=== PATIENT | male | born 1965 | race Caucasian/White ===

== ENCOUNTER 2016-03-13 11:09 | Emergency (ER) | payer MEDICARE, SELFPAY ==
[~2016-03-13] VITALS: Ht 195.6 cm; Wt 112.7 kg
[~2016-03-13 11:09] MED LIST: PARO20TA24 PO; PARO40TA PO; PROP10 PO; QUET200T PO; QUET200XR PO; TRIH2TAB3 PO
[2016-03-13] MEDS ORDERED: ACET-66 PO (11:28)
[2016-03-13 11:36] LABS: GLUCOSE,POINT OF CARE 94 MG/DL (70-110)
[2016-03-13 12:23] LABS: ANION GAP 9 mmol/L (8-16); CALCIUM, TOTAL 9.3 mg/dL (8.8-10.5); CARBON DIOXIDE 28 mmol/L (22-29); CHLORIDE 103 mmol/L (98-107); CREATININE 0.94 mg/dL (0.60-1.30); GLOMERULAR FILTR. RATE CALC > 60 mL/min (>60); POTASSIUM 3.4 mmol/L (3.5-5.1); SODIUM SERUM 140 mmol/L (136-145); UREA NITROGEN, BLOOD 12 mg/dL (7-18)
[2016-03-13 12:24] LABS: SALICYLATE 0.6 mg/dL (2.8-20.0)
[2016-03-13 12:27] LABS: HEMATOCRIT 35.5 % (41-53); HEMOGLOBIN 11.1 g/dL (13.5-17.5); MEAN CORPUSCULAR HEMOGLOBIN 21.6 pg (26.0-34.0); MEAN CORPUSCULAR HGB CONC 31.4 G/dL (31.0-37.0); MEAN CORPUSCULAR VOLUME 69 fL (80-100); PLATELET COUNT (AUTO) 244 K/uL (150-450); RED BLOOD CELL COUNT(AUTO) 5.15 MIL/uL (4.50-5.90); RED CELL DISTRIBUTION WIDTH 21.7 % (11.5-14.5)
[2016-03-13] MEDS ORDERED: SODIUM CHLORIDE 0.9% 1,000 ML IV ONE (12:30)
[2016-03-13 12:33] LABS: WHITE BLOOD COUNT (AUTO) 49.4 K/uL (4.5-11.0)
[2016-03-13 12:38] LABS: B-TYPE NATRIURETIC PEPTIDE < 5 pg/mL (0-100)
[2016-03-13 12:46] LABS: LYMPHOCYTES % (MANUAL) 85 % (22-44); TOTAL CELLS COUNTED 100
[2016-03-13 12:47] LABS: ALANINE AMINOTRANSFERASE 32 U/L (12-78); ALBUMIN 3.6 g/dL (3.4-5.0); ASPARTATE AMINOTRANSFERASE 22 U/L (15-37); BILIRUBIN,TOTAL 0.4 mg/dL (0.1-1.0); CREATINE KINASE MB 2.2 ng/mL (0-5); CREATINE KINASE, TOTAL 119 U/L (39-308); TOTAL PROTEIN, SERUM 7.5 g/dL (6.4-8.2)
[2016-03-13 12:48] LABS: RBC MORPHOLOGY COMMENT ABNORMAL R
[2016-03-13 12:58] LABS: ACETAMINOPHEN < 2 mcg/mL (10-30)
[2016-03-13 18:41] LABS: ADD UA MICROSCOPIC NO; APPEARANCE,URINE CLEAR (CLEAR); GLUCOSE, URINE (UA) NEGATIVE (NEGATIVE); KETONES,URINE 15 mg/dL (NEGATIVE); LEUKOCYTE ESTERASE ,URINE NEGATIVE (NEGATIVE); OCCULT BLOOD,URINE NEGATIVE (NEGATIVE); PROTEIN,URINE NEGATIVE (NEGATIVE)
[2016-03-13 20:30] VITALS: BP 134/86
== END 2016-03-13 20:35 | disposition home or self-care (01) ==
LOC: EMS 11:13
DX: T43.591A Poisoning by other antipsychotics and neuroleptics, accidental (unintentional), initial encounter (principal); F25.9 Schizoaffective disorder, unspecified; C95.90 Leukemia, unspecified not having achieved remission; F31.9 Bipolar disorder, unspecified; R55 Syncope and collapse
CPT/HCPCS: 36415; 71010; 80053; 80307; 81003; 82550; 82553; 82962; 83605; 83690; 83880; 84484; 85025; 93041; 96360; 99285; G0480; G0481; J7030

== ENCOUNTER 2016-07-30 12:13 | Inpatient (IN) | payer MEDICARE, SELFPAY ==
[~2016-07-30] VITALS: Ht 195.6 cm; Wt 94.0 kg
[~2016-07-30 12:13] MED LIST changes: +ACET-66 PO; -PARO40TA PO; -QUET200T PO; -TRIH2TAB3 PO
[2016-07-30 12:57] VITALS: BP 106/81
[2016-07-30] MEDS ORDERED: ZOLPIDEM TARTRATE 10 MG TABLET PO PRN (13:00)
[2016-07-30] MEDS ORDERED: GuaiFENesin/D-METHORPHAN [SUGAR-FREE] 200-20MG/10 ML SYRUP UDCUP PO PRN (13:00)
[2016-07-30] MEDS ORDERED: ACETAMINOPHEN 325 MG TABLET PO PRN (13:00)
[2016-07-30] MEDS ORDERED: HydrOXYzine PAMOATE 50 MG CAPSULE PO PRN (13:00)
[2016-07-30] MEDS ORDERED: LOPERAMIDE HCL 2 MG CAPSULE PO PRN (13:00)
[2016-07-30] MEDS ORDERED: LORazepam 2 MG TABLET PO PRN (13:00)
[2016-07-30] MEDS ORDERED: TUBERCULIN, PURIFIED PROTEIN DERIVATIVE 5 TU/0.1 ML SYG ID ONE (13:00)
[2016-07-30] MEDS ORDERED: MAG HYDROX/AL HYDROX/SIMETH ES 30 ML SUSPENSION UDCUP PO PRN (13:00)
[2016-07-30] MEDS ORDERED: QUEtiapine FUMARATE 100 MG TABLET PO PRN (13:00)
[2016-07-30] MEDS ORDERED: PROMETHAZINE HCL 25 MG TABLET PO PRN (13:00)
[2016-07-30] MEDS ORDERED: MAGNESIUM HYDROXIDE SUSPENSION 30 ML UDCUP PO PRN (13:00)
[2016-07-30] MEDS ORDERED: QUET300T2 PO (13:24)
[2016-07-30] MEDS ORDERED: PARO20TA24 PO (13:24)
[2016-07-30] MEDS ORDERED: PROP10 PO (13:24)
[2016-07-30] MEDS ORDERED: QUET200T PO (13:31)
[2016-07-30] MEDS: PROPRANOLOL HCL 10 MG TABLET PO SCH ×3 (13:51→20:44)
[2016-07-30 14:29] VITALS: BP 120/70
[2016-07-30] MEDS ORDERED: PNEUMOCOCCAL VACCINE POLYVALENT 0.5 ML VIAL [PPSV23] IM ONE (15:15)
[2016-07-30 16:00] VITALS: BP 114/67
[2016-07-30] MEDS: THIAMINE HCL 100 MG TABLET PO SCH (17:28)
[2016-07-30] MEDS: TRIHEXYPHENIDYL HCL 2 MG TABLET PO SCH (17:28)
[2016-07-30] MEDS ORDERED: QUEtiapine FUMARATE 200 MG TABLET PO SCH (21:00)
[2016-07-31 06:27] VITALS: BP 106/66
[2016-07-31 08:31] LABS: HEMOGLOBIN 11.4 g/dL (13.5-17.5); MEAN CORPUSCULAR HEMOGLOBIN 22.3 pg (26.0-34.0); MEAN CORPUSCULAR HGB CONC 30.9 G/dL (31.0-37.0); MEAN CORPUSCULAR VOLUME 72 fL (80-100); PLATELET COUNT (AUTO) 190 K/uL (150-450); RED BLOOD CELL COUNT(AUTO) 5.13 MIL/uL (4.50-5.90); RED CELL DISTRIBUTION WIDTH 20.2 % (11.5-14.5)
[2016-07-31 08:47] VITALS: BP 101/56
[2016-07-31 08:52] LABS: WHITE BLOOD COUNT (AUTO) 44.6 K/uL (4.5-11.0)
[2016-07-31 08:55] LABS: ALANINE AMINOTRANSFERASE 14 U/L (12-78); ALBUMIN 3.7 g/dL (3.4-5.0); ANION GAP 10 mmol/L (8-16); ASPARTATE AMINOTRANSFERASE 16 U/L (15-37); BILIRUBIN,TOTAL 0.4 mg/dL (0.1-1.0); CALCIUM, TOTAL 8.8 mg/dL (8.8-10.5); CARBON DIOXIDE 27 mmol/L (22-29); CHLORIDE 105 mmol/L (98-107); CHOL/HDL RATIO 4.5 (4.2-7.3); CREATININE 0.93 mg/dL (0.60-1.30); GLOMERULAR FILTR. RATE CALC > 60 mL/min (>60); HEMOGLOBIN A1C 5.9 % (4.5-6.2); POTASSIUM 3.3 mmol/L (3.5-5.1); SODIUM SERUM 142 mmol/L (136-145); THYROID STIMULATING HORMONE 1.26 uIU/mL (0.36-3.74); TOTAL PROTEIN, SERUM 7.4 g/dL (6.4-8.2); UREA NITROGEN, BLOOD 23 mg/dL (7-18)
[2016-07-31] MEDS: TRIHEXYPHENIDYL HCL 2 MG TABLET PO SCH ×2 (08:55→16:26)
[2016-07-31] MEDS: PARoxetine HCL 20 MG TABLET PO SCH (08:55)
[2016-07-31] MEDS: NALTREXONE HCL 50 MG TABLET PO SCH (08:55)
[2016-07-31] MEDS: PROPRANOLOL HCL 10 MG TABLET PO SCH ×4 (08:55→20:33)
[2016-07-31] MEDS: FOLIC ACID 1 MG TABLET PO SCH (08:55)
[2016-07-31] MEDS: MULTIVITAMINS WITH MINERALS, THERAPEUTIC TABLET PO SCH (08:55)
[2016-07-31] MEDS: THIAMINE HCL 100 MG TABLET PO SCH ×2 (08:55→16:26)
[2016-07-31 09:43] LABS: LYMPHOCYTES % (MANUAL) 57 % (22-44); REACTIVE LYMPHOCYTES 31 % (0-0); TOTAL CELLS COUNTED 100
[2016-07-31 09:44] LABS: RBC MORPHOLOGY COMMENT ABNORMAL RBC MORPH
[2016-07-31] MEDS ORDERED: POTASSIUM CHLORIDE 20 MEQ ER TABLET PO ONE (09:45)
[2016-07-31 12:53] VITALS: BP 119/73
[2016-07-31 16:08] VITALS: BP 118/73
[2016-07-31] MEDS: QUEtiapine FUMARATE 200 MG TABLET PO SCH (20:33)
[2016-08-01 00:59] VITALS: BP 107/68
[2016-08-01] MEDS: TRIHEXYPHENIDYL HCL 2 MG TABLET PO SCH ×2 (09:08→16:13)
[2016-08-01] MEDS: MULTIVITAMINS WITH MINERALS, THERAPEUTIC TABLET PO SCH (09:08)
[2016-08-01] MEDS: PROPRANOLOL HCL 10 MG TABLET PO SCH ×4 (09:09→20:24)
[2016-08-01] MEDS: FOLIC ACID 1 MG TABLET PO SCH (09:09)
[2016-08-01] MEDS: PARoxetine HCL 20 MG TABLET PO SCH (09:09)
[2016-08-01] MEDS: THIAMINE HCL 100 MG TABLET PO SCH ×2 (09:09→16:13)
[2016-08-01] MEDS: NALTREXONE HCL 50 MG TABLET PO SCH (09:09)
[2016-08-01 09:18] VITALS: BP 112/86
[2016-08-01] MEDS ORDERED: PARO20TA24 PO (15:30)
[2016-08-01] MEDS ORDERED: TRIH2TAB3 PO (15:30)
[2016-08-01] MEDS ORDERED: PROP10 PO (15:30)
[2016-08-01] MEDS ORDERED: NALT50 PO (15:30)
[2016-08-01] MEDS ORDERED: QUET200T29 PO (15:30)
[2016-08-01 16:12] VITALS: BP 120/71
[2016-08-01] MEDS: QUEtiapine FUMARATE 200 MG TABLET PO SCH (20:24)
[2016-08-02 06:25] VITALS: BP 112/67
[2016-08-02 08:11] LABS: ANION GAP 4 mmol/L (8-16); CALCIUM, TOTAL 9.1 mg/dL (8.8-10.5); CARBON DIOXIDE 30 mmol/L (22-29); CHLORIDE 107 mmol/L (98-107); CREATININE 0.93 mg/dL (0.60-1.30); GLOMERULAR FILTR. RATE CALC > 60 mL/min (>60); POTASSIUM 4.4 mmol/L (3.5-5.1); SODIUM SERUM 141 mmol/L (136-145); UREA NITROGEN, BLOOD 21 mg/dL (7-18)
[2016-08-02] MEDS: THIAMINE HCL 100 MG TABLET PO SCH ×2 (08:28→16:24)
[2016-08-02] MEDS: PROPRANOLOL HCL 10 MG TABLET PO SCH ×3 (08:28→16:24)
[2016-08-02] MEDS: NALTREXONE HCL 50 MG TABLET PO SCH (08:28)
[2016-08-02] MEDS: PARoxetine HCL 20 MG TABLET PO SCH (08:28)
[2016-08-02] MEDS: TRIHEXYPHENIDYL HCL 2 MG TABLET PO SCH ×2 (08:28→16:24)
[2016-08-02] MEDS: MULTIVITAMINS WITH MINERALS, THERAPEUTIC TABLET PO SCH (08:28)
[2016-08-02] MEDS: FOLIC ACID 1 MG TABLET PO SCH (08:28)
[2016-08-02 08:40] VITALS: BP 104/70
[2016-08-02] MEDS ORDERED: PALI234D IM (12:26)
[2016-08-02] MEDS ORDERED: PALIPERIDONE PALMITATE 234 MG/1.5 ML SYRINGE IM ONE (12:30)
[2016-08-02 16:13] VITALS: BP 119/79
[2016-08-06] MEDS ORDERED: PALIPERIDONE PALMITATE 156 MG/ML SYRINGE IM ONE (09:00)
== END 2016-08-02 18:25 | disposition home or self-care (01) | DRG 885 ==
LOC: B3A 12:56 → B2X 13:26
PROVIDERS: ADMIT Psychiatry & Neurology Psychiatry; ATTEND Psychiatry & Neurology Psychiatry
PROC: GZ51ZZZ Individual Psychotherapy, Behavioral (ICD-10-PCS; principal; 2016-07-30)
DX: F25.9 Schizoaffective disorder, unspecified (principal); C95.90 Leukemia, unspecified not having achieved remission; Z59.9 Problem related to housing and economic circumstances, unspecified; Z65.3 Problems related to other legal circumstances; F17.200 Nicotine dependence, unspecified, uncomplicated; Z79.899 Other long term (current) drug therapy; Z91.19 Patient's noncompliance with other medical treatment and regimen; Z28.21 Immunization not carried out because of patient refusal
CPT/HCPCS: 83036; 84439; 84443; 86592

== ENCOUNTER → 2018-04-09 | Outpatient (CLI) | payer MEDICARE, OTHER ==
[~2018-04-09] MED LIST changes: -ACET-66 PO; +NALT50TA6 PO; +PALI234D IM; -PROP10 PO; +PROP10TA72 PO; -QUET200XR PO; +TRIH2TAB3 PO
== END | disposition home or self-care (01) ==
LOC: LABMN 11:20
PROVIDERS: ATTEND Psychiatry & Neurology Psychiatry
DX: F25.9 Schizoaffective disorder, unspecified (principal); I10 Essential (primary) hypertension; Z79.899 Other long term (current) drug therapy
CPT/HCPCS: 82947

== ENCOUNTER → 2018-05-12 | Outpatient (CLI) | payer MEDICARE, MEDICAID | END | disposition home or self-care (01) | LOC: LABMN 10:35 | PROVIDERS: ATTEND Psychiatry & Neurology Psychiatry | DX: F25.0 Schizoaffective disorder, bipolar type (principal); J44.9 Chronic obstructive pulmonary disease, unspecified; I10 Essential (primary) hypertension; K21.9 Gastro-esophageal reflux disease without esophagitis; Z79.899 Other long term (current) drug therapy | CPT/HCPCS: 83036 ==